=== PATIENT | female | born 1975 | race Caucasian/White ===

== ENCOUNTER 2020-03-29 17:17 | Emergency (ER) | payer SELFPAY ==
[2020-03-29] MEDS ORDERED: KETOROLAC TROMETHAMINE INJ 30 MG/ML VIAL IV ONE (18:00)
--- NOTE | 2020-03-29 18:03 | ED.PDOC ---
History of Present Illness - General Chief Complaint: Abdominal Pain Stated Complaint: abdominal pain Time Seen by Provider: 03/29/20 17:41 Information Source: patient Exam Limitations: no limitations - History of Present Illness Initial Comments: 44 yo F who presents for RUQ abd pain onset 2 days ago, constant but waxes an wanes, worsens when she lays down, like it catches and spasms, states it feels like she is in labor, radiates around, associated nausea. Remote hx of gallbladder removal. Denies f/c, cough, congestion, sore throat, body aches, COVID exposure, v/d, constipation, ETOH abuse, urinary sx, trauma, injury. Review of Systems - Review of Systems Constitutional: Denies: chills, fever EENTM: States: no symptoms reported Respiratory: Denies: cough, short of breath Cardiology: Denies: chest pain, palpitations, syncope Gastrointestinal/Abdominal: States: abdominal pain, nausea. Denies: constipation, diarrhea, vomiting Genitourinary: Denies: dysuria, frequency, hematuria Musculoskeletal: Denies: back pain, neck pain Skin: Denies: lesions, rash Neurological: Denies: headache, numbness, weakness Endocrine: Denies: increased thirst, increased urine Hematologic/Lymphatic: Denies: easy bleeding, easy bruising Past Medical History (General) - Patient Medical History Surgical History: cholecystectomy, other - Social History Hx Tobacco Use: Yes Family Medical History - Family History Mother Family History: Unknown Physical Exam - Physical Exam General Appearance: Alert, Comfortable, No apparent distress, Well Developed, Well Nourished, Other - Walking round room Eyes, Ears, Nose, Throat Exam: normal ENT inspection Neck: full range of motion, supple Respiratory: chest non-tender, lungs clear, normal breath sounds, no respiratory distress, no accessory muscle use Cardiovascular/Chest: normal peripheral pulses, regular rate, rhythm, no edema, no gallop, no JVD, no murmur Peripheral Pulses: No deficit Gastrointestinal/Abdominal: soft, other - RUQ TTP, voluntary guarding. No distention, rebound. No mass. Back Exam: normal inspection, no CVA tenderness, no vertebral tenderness Extremity: normal range of motion, non-tender, normal inspection, no pedal edema, no calf tenderness, normal capillary refill Neurologic: no motor/sensory deficits, alert, normal mood/affect, oriented x 3 Skin Exam: normal color, warm/dry, other - no rash Progress - Progress Progress: 03/29/20 20:37 I have explained and reviewed all results with the pt. Pt now endorses being seen for the same sx two days ago at an outside ED with full workup including CT without contrast, pt states they found nothing. She has been taking azo, states she gets frequent UTI's, will start on macrobid. I explained that emergent conditions may arise and to return to the ER for new, worsening, or any persistent conditions. I've explained the importance of f/u for recheck. All questions and concerns addressed at this time. Pt understands and agrees with plan. Pt well appearing, NAD, is stable for discharge. Alejandra Quinonez MD Emergency Medicine Physician Billing Number [id number] - Results/Orders Results/Orders: 03/29/20 18:00 EKG STAT 03/29/20 18:01 Hold Metformin x 48Hrs [id number] Urine Culture Stat 03/29/20 20:37 [id number] [Valium] 5 mg PO ONCE ONE Laboratory Results - last 24 hr 03/29/20 03/29/20 03/29/20 18:01 18:01 18:01 WBC 6.3 RBC 4.10 L Hgb 13.1 Hct 37.8 MCV 92.4 MCH 31.9 H MCHC 34.6 RDW 13.0 Plt Count 384 MPV 7.4 Absolute Neuts (auto) 3.90 Absolute Lymphs (auto) 1.90 Absolute Monos (auto) 0.40 Absolute Eos (auto) 0.10 Absolute Basos (auto) 0.10 Neutrophils % 61.7 Lymphocytes % 29.3 Monocytes % 6.4 Eosinophils % 1.8 Basophils % 0.8 Sodium 139 Potassium 3.7 Chloride 107 Carbon Dioxide 23 Anion Gap 12.7 BUN 9 Creatinine 0.66 BUN/Creatinine Ratio 13.6 Random Glucose 106 H Serum Osmolality 276.6 Calcium 9.0 Total Bilirubin 0.5 AST 26 ALT 20 Alkaline Phosphatase 63 Serum Total Protein 6.5 Albumin 4.1 Globulin 2.4 Albumin/Globulin Ratio 1.7 Lipase Urine Color Urine Appearance Urine pH Ur Specific [place] Urine Protein Urine Glucose (UA) Urine Ketones Urine Blood Urine Nitrite Urine Bilirubin Urine Urobilinogen Ur Leukocyte Esterase Urine RBC Urine WBC Ur Epithelial Cells Urine Bacteria Urine Mucus Urine HCG, Qual Negative 03/29/20 03/29/20 18:01 18:04 WBC RBC Hgb Hct MCV MCH MCHC RDW Plt Count MPV Absolute Neuts (auto) Absolute Lymphs (auto) Absolute Monos (auto) Absolute Eos (auto) Absolute Basos (auto) Neutrophils % Lymphocytes % Monocytes % Eosinophils % Basophils % Sodium Potassium Chloride Carbon Dioxide Anion Gap BUN Creatinine BUN/Creatinine Ratio Random Glucose Serum Osmolality Calcium Total Bilirubin AST ALT Alkaline Phosphatase Serum Total Protein Albumin Globulin Albumin/Globulin Ratio Lipase 34 Urine Color [place] H Urine Appearance Sl cloudy Urine pH 5.0 Ur Specific [place] 1.020 Urine Protein 100 H Urine Glucose (UA) 100 H Urine Ketones 15 H Urine Blood Negative Urine Nitrite Positive H Urine Bilirubin Small H Urine Urobilinogen 4.0 H Ur Leukocyte Esterase Large H Urine RBC 0-1 Urine WBC 5-10 H Ur Epithelial Cells 10-20 Urine Bacteria 1+ Urine Mucus Small Urine HCG, Qual CT abd/pelvis: EXAM DESCRIPTION: Abdomen/Pelvis w/Contrast CLINICAL HISTORY: 44 years Female pain COMPARISON: None TECHNIQUE: Images were obtained in axial, sagittal, and coronal planes. Intravenous contrast was administered. This exam was performed according to our departmental dose-optimization program which includes use of Automated Exposure Control, adjustment of the mA and/or kV according to patient size and/or use of iterative reconstruction technique. FINDINGS: Appendix within normal limits. No bowel obstruction, perforation, or inflammation. No abnormality involving the liver. Spleen is prominent in size measuring 12.3 cm in greatest dimension. Calcified granuloma involving the spleen. Unremarkable pancreas and adrenal glands bilaterally. Gallbladder not well identified possibly related to prior cholecystectomy. No obstructing renal calcifications bilaterally. No hydronephrosis bilaterally. Unremarkable bladder. No abnormality abdominal aorta. Unremarkable portal vein. No adenopathy or abnormal fluid collections seen. No abnormality lower lungs bilaterally. No acute osseous abnormality. IMPRESSION: No acute intra- abdominal abnormality. Electronically signed by: Charissa Salgado MD 03/29/2020 8:22 PM CDT Vital Signs - 24 hr 03/29/20 03/29/20 03/29/20 17:48 19:00 19:40 Temperature 98.1 F 97.6 F Pulse Rate [ 101 H 79 right brachial] Respiratory 20 18 Rate Blood Pressure 187/106 178/108 [left brachial] O2 Sat by Pulse 97 97 Oximetry 06/04/20 20:00 Temperature 97.2 F L Pulse Rate [ 77 right brachial] Respiratory 18 Rate Blood Pressure 154/81 [left brachial] O2 Sat by Pulse 99 Oximetry - EKG/XRAY/CT EKG: Sinus, no ST T wave changes Comments: Rate 80 Departure - Departure Clinical Impression: Acute abdominal pain Time of Disposition: 20:35 Disposition: Discharge to Home or Self Care Health Concerns: condition: stable Departure Forms: ED Discharge - Pt. Copy, Patient Portal Self Enrollment Instructions: DI for Abdominal Pain-Adult Prescriptions: Methocarbamol [Robaxin] 500 mg PO TID #16 tab Nitrofurantoin Monohydrate Mac [Macrobid] 100 mg PO BID #10 capsule Home Medications: Ambulatory Orders Methocarbamol [Robaxin] 500 mg PO TID #16 tab 03/29/20 Nitrofurantoin Monohydrate Mac [Macrobid] 100 mg PO BID #10 capsule 03/29/20 Comments: Follow up: [facility] As needed, if symptoms worsen
[2020-03-29] MEDS ORDERED: ACETAMINOPHEN IV 1000MG 1,000 MG in PREMIX BOTTLE 1 BOTTLE IVPB ONE (19:08)
[2020-03-29 20:06] VITALS: TEMP 97.2; O2SAT 99
--- NOTE | 2020-03-29 20:24 | CT ---
EXAM DESCRIPTION: Abdomen/Pelvis w/Contrast CLINICAL HISTORY: 44 years Female pain COMPARISON: None TECHNIQUE: Images were obtained in axial, sagittal, and coronal planes. Intravenous contrast was administered. This exam was performed according to our departmental dose-optimization program which includes use of Automated Exposure Control, adjustment of the mA and/or kV according to patient size and/or use of iterative reconstruction technique. FINDINGS: Appendix within normal limits. No bowel obstruction, perforation, or inflammation. No abnormality involving the liver. Spleen is prominent in size measuring 12.3 cm in greatest dimension. Calcified granuloma involving the spleen. Unremarkable pancreas and adrenal glands bilaterally. Gallbladder not well identified possibly related to prior cholecystectomy. No obstructing renal calcifications bilaterally. No hydronephrosis bilaterally. Unremarkable bladder. No abnormality abdominal aorta. Unremarkable portal vein. No adenopathy or abnormal fluid collections seen. No abnormality lower lungs bilaterally. No acute osseous abnormality. IMPRESSION: No acute intra-abdominal abnormality. Electronically signed by: Charissa Salgado MD 03/29/2020 8:22 PM CDT
[2020-03-29] MEDS ORDERED: diazePAM 5 MG TAB PO ONE (20:37)
[2020-03-29 20:43] VITALS: BP 168/101
== END 2020-03-29 20:43 | disposition home or self-care (01) ==
LOC: ER 17:17
DX: R10.11 Right upper quadrant pain (principal); R11.0 Nausea
CPT/HCPCS: 36415; 74177; 80053; 81001; 81025; 83690; 85025; 87086; 93005; J1885